=== PATIENT | male | born 1970 | race African-American/Black ===

== ENCOUNTER 2016-04-04 15:15 | Outpatient (RCR) | payer OTHER | END 2016-04-06 | disposition home or self-care (01) | LOC: WSOT | DX: Z47.89 Encounter for other orthopedic aftercare (principal); M67.88 Other specified disorders of synovium and tendon, other site ==

== ENCOUNTER 2016-04-12 08:00 | Outpatient (RCR) | payer OTHER | END 2016-04-14 08:56 | disposition home or self-care (01) | LOC: WSOT 08:00 | DX: Z47.89 Encounter for other orthopedic aftercare (principal); M65.322 Trigger finger, left index finger ==